=== PATIENT | male | born 1965 | race Caucasian/White ===

== ENCOUNTER → 2021-02-17 | Outpatient (REF) ==
--- NOTE | 2021-02-17 12:18 | REP ---
INDICATION: ARM AND WRIST PAIN. COMPARISON: None. TECHNIQUE: AP and lateral views FINDINGS: No acute fracture or destructive osseous lesion. IMPRESSION: There is no evidence of an acute osseous abnormality. <Electronically signed by Frank Tierney > 02/17/21 [id number]
--- NOTE | 2021-02-17 12:20 | REP ---
INDICATION: ARM AND WRIST PAIN. COMPARISON: None. TECHNIQUE: Four views FINDINGS: No acute fracture or destructive osseous lesion. Degenerative changes seen throughout the wrist. Multiple round and oval-shaped subcentimeter sized ossific/calcific densities are seen in the soft tissues abutting the region of the triquetral. IMPRESSION: There is no evidence of an acute osseous abnormality. There are chronic changes as described above. Possible old triquetral fracture. <Electronically signed by Frank Tierney > 02/17/21 [id number]
== END ==
LOC: M PLAIMG 10:40
PROVIDERS: ATTEND Internal Medicine
DX: M25.531 Pain in right wrist (principal)